=== PATIENT | female | born 1970 | race Two or more races ===

== ENCOUNTER 2022-06-28 10:45 | Day surgery (SDC) | payer OTHER ==
[~2022-06-28 10:45] MED LIST: CLONAZEPAM1 MG PO; MIDODRINE HCL10 MG PO; WELLBUTRIN SR150 MG PO; [UNRECOGNIZED DRUG - OTHER] PO
[2022-06-28] MEDS ORDERED: ZITHROMAX TRI-500 MG PO (16:45)
[2022-06-28] MEDS ORDERED: IBU400 MG PO (16:45)
== END 2022-06-28 19:20 | disposition home or self-care (01) ==
LOC: CIR.AMB 10:45
PROVIDERS: ATTEND Obstetrics & Gynecology
DX: N84.0 Polyp of corpus uteri (principal); N95.8 Other specified menopausal and perimenopausal disorders; Z95.0 Presence of cardiac pacemaker; F17.210 Nicotine dependence, cigarettes, uncomplicated; F12.90 Cannabis use, unspecified, uncomplicated